=== PATIENT | female | born 1990 | race Caucasian/White ===

== ENCOUNTER 2017-01-17 09:06 | Emergency (ER) | payer MEDICAID ==
[~2017-01-17] VITALS: Ht 154.9 cm; Wt 79.4 kg
[~2017-01-17 09:06] MED LIST: NITROFURANTOIN100 M3 PO; RYTHMOL150 MG PO
[2017-01-17 09:21] VITALS: BP 130/85
--- NOTE | 2017-01-17 09:26 | NUR ---
PT AMBULATED TO BED 3 AT THIS TIME.
--- NOTE | 2017-01-17 09:30 | NUR ---
PATIENT PRESENTS TO ED WITH PRODUCTIVE COUGH, F/C, MALAISE, . PT STATES X4 DAYS FELT ILL . DENIES N/V/D; SKIN IS PINK/WARM/DRY; AAOX4 WITH EVEN AND STEADY GAIT; LUNGS CLEAR BL; HR EVEN AND REGULAR; PT DENIES ANY FEVER, CP, SOB, OR COUGH AT THIS TIME; PATIENT STATES PAIN OF 8/10 AT THIS TIME; VSS; PATIENT POSITIONED FOR COMFORT; HOB ELEVATED; BEDRAILS UP X2; BED DOWN. ER MD MADE AWARE OF PT STATUS.
[2017-01-17] MEDS ORDERED: NACL 0.9% 1,000 ML IV ONE (10:00)
[2017-01-17] MEDS ORDERED: KETOROLAC 15 MG/ML VIAL IVP ONE (10:00)
--- NOTE | 2017-01-17 10:00 | NUR ---
flu swab collected and picked up by lab
--- NOTE | 2017-01-17 11:01 | NUR ---
PT LYING ON BED.PLAYING W/HER CELLPHONE.ASKED FOR ANOTHER BLANKET ,PROVIDED ONE BLANKET. NO ACUTE DISTRESS NOTED AT THISTIME.WILL CONTINUE TO MONITOR PT.
[2017-01-17] MEDS ORDERED: METOCLOPRAMIDE 10 MG/2 ML INJ VIAL IVP ONE (11:10)
--- NOTE | 2017-01-17 11:10 | NUR ---
PT ASKED FOR PAIN MEDICATION. "PT STATES I'M HAVING A HEADACHE I FEEL LIKE MY HEAD IS FALLING OFF"POSITON PT TO COMFORT.HOB ELEVATED. DR MEAD NOTIFIED.WILL CONTINUE TO MONITOR PT.
--- NOTE | 2017-01-17 11:25 | NUR ---
PT WENT TO CT SCAN ACCOMPANIED BY DRYWALL SANDER. NO ACUTE DISTRESS NOTED AT THIS TIME.
--- NOTE | 2017-01-17 11:34 | NUR ---
BACK FROM CT SCAN. NO ACUTE DISTRESS NOTED AT THIS TIME. WILL CONTINUE TO MONITOR PT.
--- NOTE | 2017-01-17 11:35 | NUR ---
PT AMBULATED TO RESTROOM. NO ACUTE DISTRESS NOTED AT THIS TIME.
[2017-01-17] MEDS ORDERED: PENICILLIN G BENZATHINE L-A 1.2 MU/2 ML SYR IM ONE (12:00)
--- NOTE | 2017-01-17 12:39 | NUR ---
Patient discharged with v/s stable. Written and verbal after care instructions given and explained. Patient alert, oriented and verbalized understanding of instructions. Ambulatory with steady gait. All questions addressed prior to discharge. ID band AND IV CATHETER removed. Patient advised to follow up with PMD. Opportunity to ask questions provided and answered.advised Pt to increase fluid intake and Pt agreed to it.
[2017-01-17 12:42] VITALS: BP 137/78
== END 2017-01-17 12:29 | disposition home or self-care (01) ==
LOC: MED 09:06
DX: J06.9 Acute upper respiratory infection, unspecified (principal); I10 Essential (primary) hypertension
CPT/HCPCS: 36415; 70450; 81001; 81025; 85025; 87804; 96361; 96372; 96374; 96375; 99285; J0561; J1885; J2765; J7030

== ENCOUNTER 2017-03-17 11:26 | Emergency (ER) | payer MEDICAID ==
[~2017-03-17] VITALS: Ht 154.9 cm; Wt 78.0 kg
[~2017-03-17 11:26] MED LIST changes: +NITR100C55 PO; -NITROFURANTOIN100 M3 PO; +PROP150T28 PO; -RYTHMOL150 MG PO
[2017-03-17 11:32] VITALS: BP 132/74
--- NOTE | 2017-03-17 11:40 | NUR ---
PT TAKEN TO BED 5.
--- NOTE | 2017-03-17 11:55 | NUR ---
26/F presents to ED for evaluation of headache since this morning. Pt describes headache as "pounding," constant, non radiating, localized to frontal head, 07/06. Pt states she took Naproxen this morning around 0900 with no improvement. Pt states "I have been sick the past month. I came here and they told me I had a sinus infection. They gave me medicine and I finished it." Pt denies this headache feeling same as when she had her sinus infection. Pt also states "I feel hot, and I get a little sweaty and I get chills." Patient also c/o vomiting this morning, x4 episodes. No blood in emesis. Patient denies photophobia. Denies fever. No vomiting noted when she's been in ED. Patient is AOX4, ambulatory with steady gait. VSS. Skin warm and dry, normal in color for ethnicity.
--- NOTE | 2017-03-17 11:56 | NUR ---
Patient being evaluated by Dr. Mercado at bedside.
[2017-03-17] MEDS ORDERED: PROCHLORPERAZINE 10 MG/2 ML VIAL IVP ONE (12:00)
[2017-03-17] MEDS ORDERED: diphenhydrAMINE 50 MG/ML VIAL IVP ONE ×2 (12:00→12:45)
[2017-03-17] MEDS ORDERED: SUMAtriptan 6 MG/0.5 ML VIAL SUBQ ONE (12:00)
--- NOTE | 2017-03-17 12:47 | NUR ---
Pt is c/o restlessness and anxiety. Pt states "I just want to go home." Dr. Mercado made aware. He is at bedside speaking with patient.
--- NOTE | 2017-03-17 12:50 | NUR ---
Patient had already taken out her IV before I was able to go in and remove it. No bleeding noted to IV site. Applied folded 4x4 gauze and secured with paper tape.
[2017-03-17 12:55] VITALS: BP 123/74
--- NOTE | 2017-03-17 12:55 | NUR ---
Patient discharged with v/s stable. Written and verbal after care instructions given and explained. Patient alert, oriented and verbalized understanding of instructions. Ambulatory with steady gait. All questions addressed prior to discharge. ID band removed. Patient advised to follow up with PMD. Rx of IMITREX given. Patient educated on indication of medication including possible reaction and side effects. Opportunity to ask questions provided and answered.
== END 2017-03-17 12:55 | disposition home or self-care (01) ==
LOC: MED 11:27
DX: G43.909 Migraine, unspecified, not intractable, without status migrainosus (principal); I10 Essential (primary) hypertension
CPT/HCPCS: 96372; 96374; 96375; 99284; J0780; J1200; J3030

== ENCOUNTER 2017-07-26 13:33 | Emergency (ER) | payer MEDICAID ==
--- NOTE | 2017-07-26 14:55 | NUR ---
PATIENT LEFT WITHOUT BEING SEEN BY DR. CURRY. NO FURTHER CARE PROVIDED FOR PATIENT.
== END 2017-07-26 14:55 | disposition left against medical advice (07) ==
LOC: MED 13:33
DX: R10.9 Unspecified abdominal pain (principal); Z53.21 Procedure and treatment not carried out due to patient leaving prior to being seen by health care provider